=== PATIENT | female | born 1995 | race American Indian/Alaskan Native ===

== ENCOUNTER 2021-07-15 22:34 | Emergency (ER) | payer SELFPAY ==
[2021-07-15 22:48] VITALS: BP 122/75
[2021-07-16] MEDS ORDERED: dexAMETHasone 4 MG/ML VIAL IM ONE (07:45)
[2021-07-16] MEDS ORDERED: IBUPROFEN 800 MG TAB PO ONE (07:45)
--- NOTE | 2021-07-16 07:47 | Emergency Department Report ---
Minor Respiratory - HPI Chief Complaint: Earache Stated Complaint: EAR PAIN Time Seen by Provider: 07/16/21 07:40 Duration: 3 Days Pain Location: Throat, Ear Severity: moderate Minor Respiratory: Yes Sore Throat, Yes Able to Tolerate Fluids, Yes Ear Pain, Yes Fever, No Rhinorrhea, No Cough, No Sick Contacts, No Hemoptysis, No Chest Pain, No Shortness of Breath Other History: Patient is a 26-year-old female who saw her PCP 2 days ago for sore throat. They did a strep test that was negative. However, they put her on a azithromycin. She took day 1 dosing yesterday. She woke up today with an earache. She was concerned the antibiotics were not working. She does have a low-grade fever in triage. There is no abscess. She is ambulatory and [id number]. She is otherwise healthy. There is no cough. No abdominal pain. No lesions in her throat. No exudates or abscess in her throat. ED Review of Systems ROS: Stated complaint: EAR PAIN Other details as noted in HPI Comment: All other systems reviewed and negative ED Past Medical Hx - Past Medical History Previous Medical History?: No - Surgical History Past Surgical History?: No - Family History Family history: no significant - Social History Smoking Status: Never Smoker Substance Use Type: Alcohol - Medications Home Medications: Home Medications Medication Instructions Recorded Confirmed Last Taken Type No Known Home Medications [No 07/16/21 07/16/21 Unknown History Reported Home Medications] Minor Respiratory Exam - Exam General: Vital signs noted. No distress. Alert and acting appropriately. HEENT: Yes Pharyngeal Erythema, Yes Moist Mucous Membranes, No Pharyngeal Exudates, No Rhinorrhea, No Conjuctival Injection, No Frontal Tenderness, No Maxillary Tenderness Ear: Neither TM Bulge, Neither TM Erythema, Neither EAC Pain, Neither EAC Discharge Neck: Yes Supple, No Adenopathy Lungs: Yes Good Air Exchange, No Wheezes, No Ronchi, No Stridor, No Cough, No Labored Respirations, No Retractions, No Use of Accessory Muscles, No Other Abnormal Lung Sounds Heart: Yes Regular, No Murmur Abdomen: Yes Normal Bowel Sounds, No Tenderness, No Peritoneal Signs Skin: No Rash, No Edema Neurologic: Alert and oriented, no deficits. Musculoskeletal: Unremarkable. ED Course Vital Signs 07/15/21 22:38 Temperature 100.7 F H Pulse Rate 100 H Respiratory 18 Rate Blood Pressure 122/75 O2 Sat by Pulse 98 Oximetry ED Medical Decision Making - Medical Decision Making Vital Signs 07/15/21 07/16/21 07/16/21 22:38 08:43 08:53 Temperature 100.7 F H 98.7 F Pulse Rate 100 H 98 H Respiratory 18 18 18 Rate Blood Pressure 122/75 O2 Sat by Pulse 98 100 Oximetry Patient being treated by her PCP for pharyngitis. Now experiencing referred pain to her right ear. Medicated patient for pain. Have given her Decadron IM. I explained to her that is going to take more than 1 day of her antibiotic to feel better. I explained to her that she is on the correct antibiotic. That it would treat her URI. Patient being discharged home with discharge plan of care including diet, activity, medications and follow-up. She verbalizes understanding of discharge plan of care. On discharge patient is ambulatory, not ill nontoxic: She is taking p.o. with no difficulty. - Differential Diagnosis URI Critical care attestation.: If time is entered above; I have spent that time in minutes in the direct care of this critically ill patient, excluding procedure time. ED Disposition Clinical Impression: Fever Pharyngitis Qualifiers: Pharyngitis/tonsillitis etiology: other specified organisms Qualified Code(s): J02.8 - Acute pharyngitis due to other specified organisms Disposition: 01 HOME / SELF CARE / HOMELESS Is pt being admited?: No Does the pt Need Aspirin: No Condition: Stable Instructions: Pharyngitis, [id number] Additional Instructions: Continue your home antibiotic Stay well-hydrated with water Motrin or Tylenol for pain and fever Follow-up with your primary care on Sunday to make sure you are getting better Referrals: PRIMARY MD JAG [Primary Care Provider] - 3-5 Days Forms: Work/School Release Form(ED) Time of Disposition: 07:46
== END 2021-07-16 08:53 | disposition home or self-care (01) ==
LOC: ED 22:34
DX: J02.9 Acute pharyngitis, unspecified (principal); Z72.89 Other problems related to lifestyle
CPT/HCPCS: 96372; 99282; J1100